=== PATIENT | female | born 1955 | race Caucasian/White ===

== ENCOUNTER → 2025-02-17 | Outpatient (CLI) | payer MEDICARE, BC, OTHER, SELFPAY ==
--- NOTE | 2025-02-17 10:45 | XR_ITS ---
Examination: Screening digital mammography, bilateral Computer aided detection 3-D breast Tomosynthesis, bilateral Date and time of exam: February 17, 2025, 1037 hours Indication: Screening Technique: Nonmagnified MLO, CC views of the breasts to been obtained, reconstructed from 3-D Tomosynthesis images. R2 computer aided detection program utilized for evaluation of suspicious masses and/or abnormal calcifications. 3-D Tomosynthesis images obtained. Findings: Scattered areas of fibroglandular density. 20 mm focal asymmetry upper left breast MLO view 7.8 cm from the nipple Impression: BI-RADS Category 0: Incomplete: Need additional imaging evaluation Recommend follow-up spot tomographic views upper outer quadrant left breast to assess the 20 mm focal asymmetry upper left breast on the current MLO view, 7.8 cm from the nipple, as well as bilateral breast sonography to complete the work-up
== END | disposition home or self-care (01) ==
PROVIDERS: PCP Family Medicine; Referring Provider Family Medicine; Visit Provider Family Medicine
DX: Z12.31 Encounter for screening mammogram for malignant neoplasm of breast (principal); N64.89 Other specified disorders of breast; R92.8 Other abnormal and inconclusive findings on diagnostic imaging of breast
CPT/HCPCS: 77063; 77067

== ENCOUNTER → 2025-02-26 | Outpatient (CLI) | payer MEDICARE, BC, SELFPAY ==
--- NOTE | 2025-02-26 15:00 | XR_ITS ---
Examination: Breast ultrasound complete, bilateral Date and time of exam: February 26, 2025, 1715 hours INDICATIONS: Mammogram February 17, 2025 20 mm focal asymmetry upper left breast on the MLO view Technique: Real-time grayscale ultrasonographic imaging bilateral breasts, including all 4 quadrants as well as nipple retroareolar and axillary regions. Findings: Sonographic images right breast 12:00 cyst 4 x 4 mm 11:00 cyst 3 x 4 mm Retroareolar calcification 3 x 3 mm No solid nodules IMPRESSION: BI-RADS Category 2: Benign findings
--- NOTE | 2025-02-26 16:00 | XR_ITS ---
Examination: Diagnostic digital mammography, unilateral, left Computer aided detection 3-D breast Tomosynthesis, unilateral Date and time of exam: 02/26/2025 3:15 p.m. Comparisons: 04/19/2025 Indications: Further evaluation of asymmetry upper left breast seen on MLO view prior screening exam. Technique: Nonmagnified MLO, CC views of the breast have been obtained, reconstructed from 3-D Tomosynthesis images. R2 computer aided detection program utilized for evaluation of suspicious masses and/or abnormal calcifications. 3-D Tomosynthesis images obtained. Technologist: Findings: There are scattered areas of fibroglandular density. The previously described abnormality does not persist on spot compression views and represents superimposition of normal fibroglandular tissue. No evidence of abnormal masses or suspicious calcifications. Impression: BI-RADS category 1: Negative findings (within normal) Recommend 1 year follow-up mammogram
[2025-02-26 17:18] LABS: Glucose Estimated Average 123 mg/dL (80-131); Hemoglobin A1C 5.9 % Hgb (4.8-6.0)
== END | disposition home or self-care (01) ==
LOC: CDIM 14:33 → COPL 15:31
PROVIDERS: PCP Family Medicine; Referring Provider Family Medicine; Visit Provider Radiology Diagnostic Radiology
DX: R92.8 Other abnormal and inconclusive findings on diagnostic imaging of breast (principal); R92.312 Mammographic fatty tissue density, left breast; E11.65 Type 2 diabetes mellitus with hyperglycemia
CPT/HCPCS: 36415; 76641; 77061; 77065; 83036; G0279

== ENCOUNTER 2025-03-04 13:43 | Emergency (ER) | payer MEDICARE, BC, SELFPAY ==
[2025-03-04 13:44] VITALS: BMI 27.6
[2025-03-04 14:01] VITALS: BP 147/79; PULSE 76; RESP 14; TEMP 36.9; O2SAT 97
--- NOTE | 2025-03-04 14:25 | XR_ITS ---
Examination: Left hip AP, lateral, AP pelvis 3 views Technique: Hip AP lateral, AP pelvis, 3 views Exam date and time: March 04 2025, 1431 hours INDICATIONS: Injury to the hip today, hip pain. FINDINGS: Acute intertrochanteric fracture left hip Mild angulation at the fracture site No right hip or pelvic fracture IMPRESSION: Acute intertrochanteric fracture left hip.
[2025-03-04] MEDS: ONDANSETRON INJ 2 MG/ML INJ 2 ML 4 MG IVP (14:28)
[2025-03-04] MEDS: MORPHINE SULF INJ 4 MG/ML VIAL IVP (14:28)
--- NOTE | 2025-03-04 14:37 | PD.EDFALL ---
ED Fall Injury RME/HPI General Chief Complaint: Fall Stated Complaint: left hip pain s/p fall today Time Seen by Provider: 03/04/25 14:01 Arrival date/time: 03/04/25 13:43 RME / HPI RME / HPI Narrative: 69 year old female with history of hypertension, diabetes, chronic knee pain presents to the ED for evaluation of left hip pain after fall this morning. States she was walking with her cane up a step in her garage when her left knee suddenly gave out causing her to fall. States she was unable to get up on her own due to left hip pain and required assistance from her and the neighbor up into a wheelchair then to the car. Pain described as aching in sensation that is aggravated with movements, rating 10/10 in severity. Additionally complains of left knee pain though states she has chronic knee pain and was scheduled to see ortho Dr. Alvarado tomorrow. No head injury or LOC. No other injuries or complaints reported. Related Data Previous Rx's ?Medication ?Instructions ?Recorded fluconazole 150 mg tablet 150 mg PO Q3D 2 doses #2 tabs 11/19/23 Allergies Allergy/AdvReac Type Severity Reaction Status Date / Time No Known Allergies Allergy Verified 03/04/25 13:46 Review of Systems Review of Systems Systems Reviewed: All systems reviewed, normal except as documented Past Medical History Past Medical History CARDIAC: Positive Cardiac Disorders, Cardiac Arrhythmia and Hypertension ENDOCRINE: Positive Diabetes Mellitus Type 2 Surgical History SURGICAL: Positive Cardiac Surgery, Coronary Artery Bypass Graft (BYPASS X3), Endocrine Surgery and Abdominal Surgery Social History SMOKING STATUS: Never smoker SECOND HAND EXPOSURE: No SUBSTANCE USE: does not use ED Exam Narrative Physical exam: GENERAL APPEARANCE: alert and oriented x 4, well-developed, well-nourished, no acute distress HEENT: Normocephalic, atraumatic; pupils equal, round, reactive to light; EOMI; mucous membranes pink, moist; oropharynx clear NECK: Supple LUNGS: CTABL; no wheezes, no rales, no rhonchi HEART: Regular rate, regular rhythm; normal S1, S2; no murmurs ABDOMEN: non distended; normal BS; soft, no tenderness, no guarding, no rebound; no masses, no organomegaly, no hernia BACK: no CVA tenderness EXTREMITIES: left hip is shortened and externally rotated, limited ROM secondary to pain, n/v intact; no edema NEUROLOGIC: awake; alert and oriented x4; cranial nerves II-XII grossly intact; no focal sensory or motor deficits PSYCHIATRIC: appropriate mood and affect SKIN: warm, dry, normal color; no rashes Course Course Course Narrative: 1615: I spoke with transfer nurse at the [facility] transfer center. Discussed patients PMHx, HPI, ED course, exam findings, and radiology results. State they will present the case to their ortho team. 1728: Patient has been accepted for transfer by Dr. Jimenez at [facility]. 1750: I spoke with hospitalist Dr. Erazo at [facility]. Quality Measures none Orders Category Date Time Status Valerio [Urinary Catheter] NOW Care 03/04/25 16:58 Active Insert IV NOW Care 03/04/25 14:21 Active Referral - Technical Program Manager Stat Cons 03/04/25 15:[address] pelvis wo con Stat Exams 03/04/25 14:50 Completed XR HIP LT W PELVIS (DO NOT USE) Stat Exams 03/04/25 14:25 Completed CBC Stat Lab 03/04/25 16:23 Completed CMP [Comprehensive Metabolic Panel] Stat Lab 03/04/25 16:23 Completed PT [Prothrombin Time with INR] Stat Lab 03/04/25 16:23 Completed PTT [Partial Thromboplastin Time] Stat Lab 03/04/25 16:23 Completed HYDROmorphone INJ [Dilaudid Inj] Med 03/04/25 15:23 Discontinued 1 mg IVP X1 ONE Morphine* Inj Med 03/04/25 14:21 Discontinued 4 mg IVP X1 ONE Ondansetron Inj [Zofran Inj] Med 03/04/25 14:21 Discontinued 4 mg IVP X1 ONE Vital Signs Vital signs: Vital Signs Temperature 98.5 F 03/04/25 14:01 Pulse Rate 76 03/04/25 14:01 Respiratory Rate 14 03/04/25 14:01 Blood Pressure 147/79 H 03/04/25 14:01 Pulse Oximetry (%) 97 03/04/25 14:01 Oxygen Delivery Method Room Air 03/04/25 14:01 Pulse ox is 97% on room air which is adequate. Fall MDM Narrative MDM Narrative:: Donita Glez am scribing for and in the presence of Dr. Lennon. Patient data External records reviewed:: [facility] previous records Clinical information provided by:: patient Social determinants that could affect healthcare access:: none Patient has the following chronic illnesses:: HTN, DM, chronic knee pain How is presenting disease/condition affected by chronic disease/condition?: exacerbated by Evaluation data The following diagnostics were reviewed and interpreted by me:: lab results and radiology exam(s) Lab and/or radiology exams considered but not ordered:: None Interpretation Summary: Ordering Physician: Yocasta Lennon MD Date of Service: 03/04/25 Procedure(s): XR hip LT w pelvis 2-3V Accession Number(s): [id number] cc: Pj Ambrocio MD; NO PRIMARY/FAMILY,PHYSICIAN; Yocasta Lennon MD~ Examination: Left hip AP, lateral, AP pelvis 3 views Technique: Hip AP lateral, AP pelvis, 3 views Exam date and time: March 04 2025, 1431 hours INDICATIONS: Injury to the hip today, hip pain. FINDINGS: Acute intertrochanteric fracture left hip Mild angulation at the fracture site No right hip or pelvic fracture IMPRESSION: Acute intertrochanteric fracture left hip. Dictated By: Pj Ambrocio MD Signed By: <Electronically signed by Pj Ambrocio MD in OV> 03/04/25 1502 Ordering Physician: Yocasta Lennon MD Date of Service: 03/04/25 Procedure(s): CT pelvis wo con Accession Number(s): [id number] cc: Pj Ambrocio MD; NO PRIMARY/FAMILY,PHYSICIAN; Yocasta Lennon MD~ Examination: CT pelvis without intravenous contrast. 2-D sagittal and coronal reconstructions. Date and time of exam: March 04, 2025, 1503 hours INDICATIONS: Patient fell today with injury to the left hip, left hip pain CTDI: vol (mGy) : 7.52 DLP: (mGycm) : 254 Technique: Multiple 3 mm axial sections of the pelvis have been obtained with the 64 slice high resolution scanner. 2-D sagittal and coronal reconstructions. Low dose protocols were performed. One or more of the following dose reduction techniques were used; automated exposure control, adjustment of the mA and/or KV according to patient size, use of iterative reconstruction technique. Findings: Severe osteopenia Sacral segments intact Iliac bones acetabular regions intact Anterior rami intact Acute intertrochanteric fracture, left hip, up to 7 mm separation of the main fracture fragments The fracture lines extend through the greater trochanter of the left hip, comminuted There is no avulsion of the lesser trochanter No dislocation Right hip intact Urinary bladder intact No pelvic hematoma IMPRESSION: Acute intertrochanteric fracture left hip Dictated By: Pj Ambrocio MD Signed By: <Electronically signed by Pj Ambrocio MD in OV> 03/04/25 1713 Medications / Prescriptions Medications or Prescriptions considered but not ordered:: None Medication administrations:: Medication Administration History Discontinued Medications Hydromorphone HCl (Hydromorphone Inj 2 Mg/Ml Vial) 1 mg IVP X1 ONE Stop: 03/04/25 15:24 Last Admin: 03/04/25 15:28 Dose: 1 mg Documented By: GM Morphine Sulfate (Morphine Sulf Inj 4 Mg/Ml Vial) 4 mg IVP X1 ONE Stop: 03/04/25 14:22 Last Admin: 03/04/25 14:28 Dose: 4 mg Documented By: DB Ondansetron HCl (Ondansetron Inj 2 Mg/Ml Inj 2 Ml) 4 mg IVP X1 ONE; Protocol Stop: 03/04/25 14:22 Last Admin: 03/04/25 14:28 Dose: 4 mg Documented By: DB See above Consultations Consultation(s) initiated? (list below): Yes Consultation #1 (Physician, Specialty, Details): See course Diagnosis Fall Differential Diagnosis: syncope, compression fracture and other (hip fracture, pelvic fracture, knee fracture, knee dislocation) Most likely diagnosis given after review of the tests above:: Acute intertrochanteric fracture, left Admission Indicated Admission indicated?: not indicated Explain why admission is indicated or not indicated:: Transfer for ortho services Admission Request Was there a request for admission?: No Disposition Plan Disposition Plan: Transfer Discharge Plan Plan Patient Disposition: [facility] Facility Pt Being Transferred to: [facility] Service Needed for Transfer: Orthopedics Prescriptions/Referrals Prescriptions/Med Rec: No Action fluconazole 150 mg tablet 150 mg PO Q3D Qty: 2 0RF Referrals: No Primary/Family,Physician [Primary Care Provider] - In 1 week Problem List Clinical Impression: Closed intertrochanteric fracture of left hip Patient/Caregiver Discharge Instructions Print Language: Cambodian Stand Alone Forms: [facility] Award Info., Patient Portal Info Letter
--- NOTE | 2025-03-04 14:50 | XR_ITS ---
Examination: CT pelvis without intravenous contrast. 2-D sagittal and coronal reconstructions. Date and time of exam: March 04, 2025, 1503 hours INDICATIONS: Patient fell today with injury to the left hip, left hip pain CTDI: vol (mGy) : 7.52 DLP: (mGycm) : 254 Technique: Multiple 3 mm axial sections of the pelvis have been obtained with the 64 slice high resolution scanner. 2-D sagittal and coronal reconstructions. Low dose protocols were performed. One or more of the following dose reduction techniques were used; automated exposure control, adjustment of the mA and/or KV according to patient size, use of iterative reconstruction technique. Findings: Severe osteopenia Sacral segments intact Iliac bones acetabular regions intact Anterior rami intact Acute intertrochanteric fracture, left hip, up to 7 mm separation of the main fracture fragments The fracture lines extend through the greater trochanter of the left hip, comminuted There is no avulsion of the lesser trochanter No dislocation Right hip intact Urinary bladder intact No pelvic hematoma IMPRESSION: Acute intertrochanteric fracture left hip
[2025-03-04] MEDS: HYDROmorphone INJ 2 MG/ML VIAL 1 MG IVP (15:28)
--- NOTE | 2025-03-04 15:58 | PC.CC ---
Addendum entered by Josesito Marie RN 03/04/25 19:14: Shahana aware to call ED when bed becomes available. She has the ED number Addendum entered by Josesito Marie RN 03/04/25 18:53: 1850: called [facility] to cancel transfer request, spoke to Jamie Addendum entered by Josesito Marie RN 03/04/25 18:47: 1813: called [facility] to f/u on transfer info, spoke to Shahana. She stated no bed information at this time. She stated it may be available after change of shift. Transfer packet w/ X1 CD created and given to ED Charge Margaret, handoff given. Addendum entered by Josesito Marie RN 03/04/25 17:55: 1752: Dr. Erazo accepted pt to Tele floor. Judith will call me back with information 1748: received call from Judith MIRANDA, peer to peer with Dr. Erazo ([facility]) and Dr. Lennon initiated. Addendum entered by Josesito Marie RN 03/04/25 17:36: transfer packet w/ 1 CD created. lab results and CT results sent to Addendum entered by Josesito Marie RN 03/04/25 17:31: 1727: spoke to Dr. Lennon to inform her of the status. 1723: received call from Judith mcdermott/ , she stated Dr. Jimenez accepted to consult, just waiting for her hospitalist to accept. Addendum entered by Josesito Marie RN 03/04/25 17:10: 1707: called [facility] to f/u on status of transfer request. Crystal stated she has not had a chance to review yet. She will call back shortly Addendum entered by Joseisto Marie RN 03/04/25 16:21: 1616: Conference call initiated between Judith and Dr. Lennon. Judith will review clinicals, present to ortho oncall and will call back. No ortho oncall at the [facility]. Will present to ortho in [place]. 1609: Called [facility], transfer initiated with Judith. 1608: called [facility], spoke to Crystal. She will call back after she reviews clinicals. Original Note: received transfer request for orthopedic for acute intertrochanteric fracture left hip. Clinicals and images sent to [facility]
[2025-03-04 16:16] VITALS: BP 149/72; PULSE 76; RESP 16; TEMP 36.3; O2SAT 97
[2025-03-04 16:39] LABS: Basophils # (Auto) 0.1 Thou/mm3 (0.0-0.2); Basophils % (Auto) 0 % (0-2.5); Eosinophils # (Auto) 0.0 Thou/mm3 (0.0-0.5); Eosinophils % (Auto) 0 % (0-10); Hematocrit 35.3 % (36.0-46.0); Hemoglobin 12.6 g/dL (12.0-16.0); Immature Granulocytes Auto 0.07 Thou/mm3 (0.00-0.00); Lymphocytes # (Auto) 2.1 Thou/mm3 (1.0-4.8); Lymphocytes % (Auto) 18 % (10-50); Mean Corpuscular HGB Conc 35.7 g/dl (31.0-37.0); Mean Corpuscular Hemoglobin 30.5 pg (25.0-35.0); Mean Corpuscular Volume 86 fL (80-100); Monocytes # (Auto) 0.8 Thou/mm3 (0.0-0.8); Monocytes % (Auto) 7 % (0-12); Neutrophils # (Auto) 8.6 Thou/mm3 (1.8-7.7); Neutrophils % (Auto) 74 % (37-80); Nucleated Red Blood Cell # 0.00 Thou/mm3 (0.00-0.00); Nucleated Red Blood Cell % 0 /100 WBC (0); Platelet Count 158 Thou/mm3 (140-440); RDW Standard Deviation 42.6 fL (36.4-46.3); Red Blood Count 4.13 Miln/mm3 (4.00-5.20); White Blood Count 11.7 Thou/mm3 (3.6-11.0)
[2025-03-04 16:55] LABS: INR 1.1 (0.9-1.3); Partial Thromboplastin Time 22.3 Seconds (22.0-36.0); Prothrombin Time 11.9 Seconds (9.0-12.2)
[2025-03-04 16:58] LABS: Alanine Aminotransferase 20 U/L (10-49); Albumin, Serum 4.9 gm/dL (3.4-4.8); Albumin/Globulin Ratio 2.9 (1.2-2.2); Alkaline Phosphatase 52 U/L (46-116); Anion Gap 11 (7-16); Aspartate Amino Transferase 26 U/L (0-34); BUN/Creatinine Ratio 13 Ratio (12-20); Bilirubin,Total 1.0 mg/dL (0.3-1.2); Blood Urea Nitrogen 9 mg/dL (9-23); Calcium 9.8 mg/dL (8.3-10.6); Calcium (Corrected) 9.8 mg/dL (8.5-10.1); Carbon Dioxide 24.2 mMol/L (20.0-31.0); Chloride 108 mMol/L (98-107); Creatinine (Component) 0.7 mg/dL (0.6-1.3); Estimated Creatinine Clearance 77.5 mL/min (>60); Globulin 1.7 gm/dL (2.3-3.5); Glucose 183 mg/dL (74-106); Osmolality,Calculated 288 (275-295); Potassium 3.8 mMol/L (3.4-5.1); Sodium 143 mMol/L (136-145); Total Protein 6.6 gm/dL (5.7-8.2); eGFR > 60 See Note
[2025-03-04 18:16] VITALS: BP 147/87; PULSE 74; RESP 16; TEMP 36.5; O2SAT 95
[2025-03-04 20:20] VITALS: BP 137/81; PULSE 81; RESP 18; TEMP 36.6; O2SAT 97
[2025-03-04] MEDS: KETOROLAC INJ 30 MG/ML VIAL 15 MG IVP (22:10)
== END 2025-03-04 22:29 | disposition short-term general hospital (02) ==
PROVIDERS: Emergency Provider Emergency Medicine
DX: S72.142A Displaced intertrochanteric fracture of left femur, initial encounter for closed fracture (principal); W19.XXXA Unspecified fall, initial encounter; Y93.01 Activity, walking, marching and hiking; I10 Essential (primary) hypertension; E11.9 Type 2 diabetes mellitus without complications
CPT/HCPCS: 36415; 51702; 72192; 73502; 80053; 85025; 85610; 85730; 96374; 96375; 99284; A4314; J1171; J1885; J2270; J2405